=== PATIENT | male | born 1935 | race Caucasian/White ===

== ENCOUNTER 2024-01-29 10:23 | Emergency (ER) | payer MEDICARE, SELFPAY ==
[2024-01-29 10:33] VITALS: BP 107/57
[2024-01-29] MEDS: NORCO 5/325 1 TABLET PO (12:11)
[2024-01-29 14:27] VITALS: BP 121/78
--- NOTE | 2024-01-29 14:59 | ED.MUSCINJ ---
HPI-Injury
General
Chief Complaint: Fall
Time Seen by Provider: 01/29/24 11:15
History of Present Illness-Injury
Initial Injury comments:
88-year-old male presents from home after fall he sustained last evening. He was in his wheelchair leaning forward and he fell out of his wheelchair onto his left hip. He complains of left lateral hip pain. He did not hit his head. No
anticoagulants. He walks minimally on a normal basis. He typically is wheelchair-bound and stands to transfer. No other complaints at this time
Past History
Past History
ED Past Medical History: COPD, HTN, Hypercholesterolemia, IDDM (type II), Hypothyroidism and Other (anxiety, Sleep apnea uses CPAP, )
ED Past Surgical History: None
Social History
Tobacco: Former smoker
Alcohol: Occasional
Drug: None
Personal:
Living: with family
Phy Exam
Physical Exam
Physical Exam:
General: Well-appearing male no acute respiratory distress
HEENT: Normocephalic atraumatic
Heart: Regular rate rhythm no murmurs
Lungs: Clear no wheeze or rales
Musculoskeletal exam: The spine is nontender. The left lateral hip is tender without deformity to the leg. Increased pain with external rotation of the hip.
Neurologic: Alert just hard of hearing. No facial asymmetry
Injury Course
Orders/Labs/Results
Orders:
Orders
01/29/24 11:38
CR Hip - LT w/wo Pel 2-3 Vw* Urgent
Comment:
Reason For Exam: fall, left hip pain
Include a pelvis x-ray?: Yes
01/29/24 12:01
CT Pelvis W/o Iv Contrast Urgent
Comment:
Reason For Exam: left hip pain
01/29/24 12:07
Hydrocodone 5/APAP 325 [[place] 5/325] 1 tablet PO NOW STA
01/29/24 13:44
Case Management Consult ONCE
Case Management Consult: VN/Home Care
MDM/Problems Addressed
Differential Diagnosis Includes:
Fall with left hip pain. Consider contusion versus fracture versus dislocation
X-rays initially reviewed by this provider and radiology no acute finding noted but given the patient's discomfort I was concerned for possible occult injury. CT of the pelvis was then ordered. This does confirm a nondisplaced fracture of the
greater trochanter of the left femur. Discussed findings with orthopedics. This is a nonoperative injury. Patient's daughter does prefer him to be treated at home but did request help from case management to potentially set up home health for
visiting nurses. Case management in the room currently but patient will be discharged home. A dose of [place] here did help relieve the patient's discomfort.
*Critical Care Note
Total Time (30-74mins, 75-104mins- exclusive of procedures): Not Applicable
ED Attending Note
-
Portions of this chart may have been created with voice recognition software.� Occasional wrong word or��sound alike� substitutions may have occurred due to the inherent limitations of voice recognition software.
Discharge Plan
Departure
Patient Disposition: Home (Routine Discharge)
Date of Disposition: 01/29/24
Time of Disposition: 15:08
Patient with high blood pressure during this ER visit?: No
Discharge Problem:
Closed fracture of greater trochanter of left femur
Instructions: Preventing falls in adults
Prescriptions:
New
hydrocodone-acetaminophen 5-325 mg tablet
1 tab PO TID PRN (Reason: Pain) Qty: 10 0RF
No Action
atorvastatin 20 MG tablet
20 mg PO DAILY
sertraline 100 MG tablet
100 mg PO BID
omeprazole magnesium [Prilosec OTC] 20 MG tablet,delayed release (DR/EC)
20 mg PO DAILY
cholecalciferol (vitamin D3) 1,000 UNITS tablet
1,000 units PO DAILY
levothyroxine 137 MCG capsule
137 mcg PO DAILY
trazodone 100 MG tablet
100 mg PO HS
miconazole nitrate 2 % Cream
1 applic TOPICAL BID
miconazole nitrate [Miconazorb AF] 2 % Powder
1 applic TOPICAL BID
acetaminophen [Tylenol Extra Strength] 500 mg Tablet
1,000 mg PO Q6H PRN (Reason: mild pain)
insulin glargine [Lantus Solostar U-100 Insulin] 100 unit/mL (3 mL) insulin pen
20 unit SC DAILY
cefdinir 300 mg capsule
300 mg PO Q12H 5 Days Qty: 10 0RF
Referrals:
Bolivar Frank MD [Family Provider] -
Alex Reynolds MD [Active] -
Activity Restrictions/Additional Instructions:
Continue with pain medicine if needed for severe pain. Alex may stand up to transfer and have partial weightbearing to left leg. Please follow-up with orthopedics for further evaluation
Interventions
Interventions:
*General Assessment Last Done: 01/29/24 16:25
*Nursing Disposition Last Done: 01/29/24 16:25
ED-Musculoskeletal Assessment Last Done: 01/29/24 11:10
ED- Neurological Assessment Last Done: 01/29/24 11:10
ED-Skin Assessment Last Done: 01/29/24 11:10
Discharge Date and Time
Discharge Date/Time: 01/29/24 16:30
Print Language: POLISH
--- NOTE | 2024-01-29 16:00 | CM ---
CM following re: d/c planning.
CM met with pt at bedside.
Pt is GAMBELL. He agreed to have CM speak with his daughter.
Call placed to daughter Xiao.
She reports in the home reside pt, his , herself, and her sister who is disabled.
Xiao states she is trying to care for everyone.
She is working with [facility] to get waiver services in place.
She states pt has a walker and WC, mostly using WC. She states he can navigate the WC independently, but she assists him with transfers.
She states he should use the walker more.
She states he is current with Palliative care.
We discussed VN, she is agreeable to ref to [facility].
CM confirmed pt is agreeable also.
Goal: return home with [facility].
== END 2024-01-29 16:30 | disposition home or self-care (01) ==
LOC: EMR 10:23
PROVIDERS: EMERGENCY PHYSICIAN Emergency Medicine; FAMILY PHYSICIAN Family Medicine
DX: S72.112A Displaced fracture of greater trochanter of left femur, initial encounter for closed fracture (principal); W05.0XXA Fall from non-moving wheelchair, initial encounter; J44.9 Chronic obstructive pulmonary disease, unspecified; I10 Essential (primary) hypertension; E78.00 Pure hypercholesterolemia, unspecified; E11.9 Type 2 diabetes mellitus without complications; E03.9 Hypothyroidism, unspecified; F41.9 Anxiety disorder, unspecified; G47.30 Sleep apnea, unspecified; Z87.891 Personal history of nicotine dependence; Z99.3 Dependence on wheelchair
CPT/HCPCS: 99284; 72192; 73502

== ENCOUNTER 2024-02-01 13:03 | Inpatient (IN) | payer MEDICARE, SELFPAY ==
[2024-01-31] VITALS (9 sets, daily range): BP systolic 94–157; BP diastolic 52–77; O2SAT 95; BMI 23.2
--- NOTE | 2024-01-31 14:05 | ED.GENMED ---
History of Present Illness
General
Chief Complaint: Social Service Referral
Source: patient and family
Time Seen by Provider: 01/31/24 13:54
History of Present Illness
History of Present Illness:
88-year-old male seen by this provider 2 days ago presents with increased difficulty managing and functioning at home. He was here and diagnosed with a greater trochanteric fracture of the left femur. Family wanted to try management at home with
visiting nurses. Visiting nurse did see them today. Family notes hardship in function and pain management at home and present here for possible placement. No new injury. After discussion with orthopedics 2 days ago the injury he has is a
nonoperative type of injury. No chest pain shortness of breath fever abdominal pain nausea or vomiting. He notes pain to the left hip. No other complaints at this time
Past History
Past History
ED Past Medical History: COPD, HTN, Hypercholesterolemia, IDDM (type II), Hypothyroidism and Other (anxiety, Sleep apnea uses CPAP, )
ED Past Surgical History: None
Social History
Tobacco: Former smoker
Alcohol: Occasional
Drug: None
Personal:
Living: with family
Phy Exam
Physical Exam
Physical Exam:
General: Frail-appearing male no acute respiratory distress
HEENT: Normocephalic atraumatic, heart
Heart: RRR no mumurs
Lungs: CTA bilaterally
MSK: Left hip tender laterally, no deformities
neuro: alert, hard of hearing, no facial asymmetry
Course
Orders/Labs/Results
Orders:
Orders
01/31/24 14:04
Case Management Consult ONCE
Case Management Consult: Discharge Planning
PT Consult [Pt Eval And Treat] Urgent
Treatment: PWB LLE, ok to transfer
Activity Level: Ambulate
01/31/24 14:13
Complete Blood Count/With Diff Urgent
Comprehensive Metabolic Panel Urgent
01/31/24 15:20
HYDROmorphone [Dilaudid] 0.5 mg IV NOW STA
Abnormal Lab Results
01/31/24
14:13
RBC 2.83 L 10^6/uL
(4.70-6.10)
Hgb 9.0 L g/dL
(13.0-18.0)
Hct 26.8 L %
(39.0-52.0)
MCV 94.7 H fL
(80.0-94.0)
MCH 31.8 H pg
(27.0-31.0)
Plt Count 86 L 10^3/uL
(130-400)
MPV 11.1 H fL
(7.4-10.4)
Absolute Lymphs (auto) 0.9 L 10^3/uL
(1.2-3.4)
Immature Gran % 0.6 H %
(0-0.5)
Lymphocytes % 16.9 L %
(20.5-51.1)
Monocytes % 10.4 H %
(1.7-9.3)
Sodium 134 L mmol/L
(135-145)
BUN 45 H mg/dl
(9-20)
Creatinine 1.6 H mg/dL
(0.7-1.3)
Glucose 269 H mg/dl
(70-99)
Total Protein 6.1 L g/dl
(6.3-8.2)
01/31/24 14:13
01/31/24 14:13
Vital Signs
Initial and Last Documented VS:
Initial Vital Signs
Temp Pulse Resp BP
98.2 F 88 20 147/70
01/31/24 13:22 01/31/24 13:22 01/31/24 13:22 01/31/24 13:22
Last Documented Vital Signs
Temp Pulse Resp BP
98.2 F 81 16 146/57
01/31/24 13:22 01/31/24 14:00 01/31/24 14:07 01/31/24 14:00
MDM/Problems Addressed
Differential Diagnosis Includes:
Generalized weakness in the setting of known greater trochanteric fracture of the left femur. May be a result of the orthopedic injury. Check basic labs. Family unable to care for patient at home. He had visiting nurses set up already at home.
Consult physical therapy and case movement. Patient may require placement.
*Critical Care Note
Total Time (30-74mins, 75-104mins- exclusive of procedures): Not Applicable
Update Note
Update Note:
Patient evaluated by physical therapy and case management. Physical therapy recommend temporary placement into rehab. Case management unable to place. Family tried to care for him at home but the care is too much to handle. Will admit to
hospital for further evaluation
ED Attending Note
-
Portions of this chart may have been created with voice recognition software.� Occasional wrong word or��sound alike� substitutions may have occurred due to the inherent limitations of voice recognition software.
Discharge Plan
Departure
Patient Disposition: Admit
Date of Disposition: 01/31/24
Time of Disposition: 15:39
Admit to: Telemetry
Presentation/result/management discussed w/ accepting MD/DO: Hospitalist
Discharge Problem:
Closed fracture of greater trochanter of femur
Prescriptions:
No Action
atorvastatin 20 MG tablet
20 mg PO DAILY
sertraline 100 MG tablet
100 mg PO BID
omeprazole magnesium [Prilosec OTC] 20 MG tablet,delayed release (DR/EC)
20 mg PO DAILY
cholecalciferol (vitamin D3) 1,000 UNITS tablet
1,000 units PO DAILY
levothyroxine 137 MCG capsule
137 mcg PO DAILY
trazodone 100 MG tablet
100 mg PO HS
miconazole nitrate 2 % Cream
1 applic TOPICAL BID
miconazole nitrate [Miconazorb AF] 2 % Powder
1 applic TOPICAL BID
acetaminophen [Tylenol Extra Strength] 500 mg Tablet
1,000 mg PO Q6H PRN (Reason: mild pain)
insulin glargine [Lantus Solostar U-100 Insulin] 100 unit/mL (3 mL) insulin pen
20 unit SC DAILY
cefdinir 300 mg capsule
300 mg PO Q12H 5 Days Qty: 10 0RF
hydrocodone-acetaminophen 5-325 mg tablet
1 tab PO TID PRN (Reason: Pain) Qty: 10 0RF
Referrals:
Bolivar Frank MD [Family Provider] -
Interventions
Interventions:
*Risk Screen - Suicide Last Done: 01/31/24 13:38
*General Assessment Last Done: 01/31/24 13:38
*Neglect/Abuse Screening Last Done: 01/31/24 13:38
*ED COVID-19 Vaccine History Last Done: 01/31/24 13:38
ED-Musculoskeletal Assessment Last Done: 01/31/24 13:38
ED-Psychological Assessment Last Done: 01/31/24 13:38
Discharge Date and Time
Print Language: YAKUT
[2024-01-31 14:44] LABS: % Basophils 0.4 % (0-2); % Eosinophils 0.4 % (0-6); % Immature Granulocytes 0.6 % (0-0.5); % Lymphocytes 16.9 % (20.5-51.1); % Monocytes 10.4 % (1.7-9.3); % Neutrophils 71.3 % (42.2-75.2); Absolute Lymphocytes 0.9 10^3/uL (1.2-3.4); Absolute Monocytes 0.6 10^3/uL (0.1-0.6); Absolute Neutrophils 3.8 10^3/uL (1.4-6.5); Hematocrit 26.8 % (39.0-52.0); Mean Corp Hgb Conc. 33.6 g/dL (33.0-37.0); Mean Corpuscular Hgb 31.8 pg (27.0-31.0); Mean Corpuscular Volume 94.7 fL (80.0-94.0); Mean Platelet Volume 11.1 fL (7.4-10.4); Nucleated Red Blood Cells % 0 % (-); Platelet Count 86 10^3/uL (130-400); Red Blood Cell Count 2.83 10^6/uL (4.70-6.10); Red Cell Dist. Width 13.1 % (11.5-14.5); White Blood Cell Count 5.3 10^3/uL (4.8-10.8)
[2024-01-31 14:46] LABS: ALT (SGPT) 27 U/L (0-50); AST (SGOT) 51 U/L (17-59); Albumin 3.5 g/dl (3.5-5.0); Alkaline Phosphatase 82 U/L (38-126); Blood Urea Nitrogen 45 mg/dl (9-20); Calcium 8.8 mg/dl (8.4-10.2); Carbon Dioxide 27 mmol/L (22-30); Chloride 101 mmol/L (98-107); Glucose 269 mg/dl (70-99); Potassium 4.6 mmol/L (3.5-5.1); Sodium 134 mmol/L (135-145); Total Bilirubin 0.6 mg/dl (0.2-1.3); Total Protein 6.1 g/dl (6.3-8.2); eGFR 41.19
--- NOTE | 2024-01-31 14:51 | CM ---
Addendum entered by Lila Quan 01/31/24 17:07:
Referrals sent to closest [facility] approved facilities:
1. [facility]
2. [facility]
Patient was sleeping, daughter made aware. Daughter also given a list of the two facilities and their phone numbers and addresses.
Addendum entered by Lila Quan 01/31/24 15:35:
CM reviewed CM note from 01/28.
Per daughter, patient continues to live his , Xiao (daughter at bedside), and her sister who is disabled.
Xiao continues caring for everyone.
On 01.28, Xiao reported she is working with [facility] to get waiver services in place.
Xiao confirmed patient still has a walker and WC, mostly using WC.
Patient continues to be extremely [place]. Per Xiao, his hearing aids were thrown away in the trash.
On 01.28, Xiao reported that patient is current with Palliative care.
DISCHARGE DISPOSITION: Short term rehab at SNF
Addendum entered by Lila Quan 01/31/24 15:19:
CM called [facility]'s UR department. They would liked to be called once patient's care is under an [facility] provider.
Addendum entered by Lila Quan 01/31/24 15:05:
Referrals sent, awaiting PT notes to send with referral.
Original Note:
CM reviewed chart. CM introduced self and role to patient and daughter who was also at bedside. Daughter is the caregiver for patient, his (her mom) and her sister with special needs.
CM explained that patient has Medicare, so STR would usually be private pay. Patient's daughter stated patient would not be able to afford paying for STR. MARIA TERESA also explained 3-MN stay rule, which daughter is familiar with.
CM spoke with [facility] liaison, Karen Funk, who shared patient is a [facility] patient.
Karen gave CM a list of participating facilites. Karen gave the [facility] UR department's number:
[phone] ext [phone]
and the Fax number:
[phone]
CM explained what the [employer] program is and the list of facilites in the area to patient and daughter. She is agreeable to a bed search, if [employer] will assist with costs.
[2024-01-31] MEDS: DILAUDID 0.5 MG IV (15:24)
--- NOTE | 2024-01-31 16:25 | HPS.HSE ---
Family Physician
-
Family Physician: Bolivar Frank
Chief Complaint
-
left hip pain
History of Present Illness
88-year-old male past medical history of type 2 diabetes, hypertension, COPD, obstructive sleep apnea, GERD, chronic thrombocytopenia, chronic anemia, hypothyroidism, anxiety/depression, sacral/buttock ulcer, who originally came to the emergency
room 2 days ago after a fall onto his left hip. He was diagnosed with left femur greater trochanteric fracture. He went home with visiting nurse family notes difficulty with functioning and pain control and he comes for possible placement. He
denies any new injury.
He has been taking Vicodin every 8 hours for pain which has not been sufficient for pain control since he has been having muscle spasms.
Medical History
Past Medical History
Past Medical History: Reports Other ( type 2 diabetes, hypertension, COPD, obstructive sleep apnea, GERD, chronic thrombocytopenia, chronic anemia, hypothyroidism, anxiety/depression, sacral/buttock ulcer)
Past Surgical History: Reports None
Social History
Tobacco: Non-smoker
Alcohol: None
Drug: None
Family History
Family History: Not pertinent
Allergies / Home Medications
Allergies reflects when Allergies were last updated in [employer].
Home Medications with original date entered in [employer]
Allergy/Medication List:
Allergies
Allergy/AdvReac Type Severity Reaction Status Date / Time
quinine Allergy fever,n/v Verified 01/29/24 10:34
Tetanus Vaccines and Toxoid Allergy fever/chill Verified 01/29/24 10:34
s
Home Medications
atorvastatin 20 mg tablet 20 mg PO DAILY High cholesterol 03/27/14
omeprazole magnesium 20 mg tablet,delayed release (Prilosec OTC) 20 mg PO DAILY Gastrointestinal issue 03/27/14
sertraline 100 mg tablet 100 mg PO BID Depression 03/27/14
cholecalciferol (vitamin D3) 25 mcg (1,000 unit) tablet 1,000 units PO DAILY Supplement 09/24/20
levothyroxine 137 mcg capsule 137 mcg PO DAILY Thyroid 09/24/20
trazodone 100 mg tablet 100 mg PO HS depression 11/30/21
insulin glargine 100 unit/mL (3 mL) subcutaneous pen (Lantus Solostar U-100 Insulin) 10 unit SC DAILY Diabetes 02/18/23
cetirizine 10 mg tablet (Zyrtec) 10 mg PO DAILY Allergies 01/31/24
hydrocodone 5 mg-acetaminophen 325 mg tablet 1 tab PO Q8H Pain 01/31/24
Review of Systems
-
History Source: Patient
A 12 point ROS was completed and negative except as noted: Yes
Constitutional: Reports No Symptoms
EENT: Reports No Symptoms
Respiratory: Reports No Symptoms
Cardiac: Reports No Symptoms
Abdomen/GI: Reports No Symptoms
: Reports No Symptoms
Musculoskeletal: Reports See HPI
Skin: Reports No Symptoms
Neurological: Reports No Symptoms
Endocrine: Reports No Symptoms
Hematologic/Lymphatic: Reports No Symptoms
Psych: Reports No Symptoms
Physical Exam
Vital Signs
Vital Signs
Temp Pulse Resp BP Pulse Ox
98.2 F 79 16 94/56 96
01/31/24 13:22 01/31/24 16:00 01/31/24 16:00 01/31/24 16:00 01/31/24 16:00
Physical Exam
General: Well Developed, Well Nourished and No Apparent Distress
HEENT: NormoCephalic, Moist mucous membranes and Atraumatic
Respiratory: Clear
Cardiac: S1/S2 and Regular Rhythm; No Murmur or Rub
GI: Soft, Non Tender, Non Distended and Normal Bowel Sounds; No Organomegaly
Rectal: Deferred by Provider
Musculoskeletal: No Clubbing, No Cyanosis and No Edema
Skin: No Rash
Neuro: Nonfocal/grossly intact
Laboratory Results
-
01/31/24 14:13
01/31/24 14:13
Laboratory Results
Total Bilirubin 0.6 mg/dl (0.2-1.3) 01/31/24 14:13
AST 51 U/L (17-59) 01/31/24 14:13
ALT 27 U/L (0-50) 01/31/24 14:13
Alkaline Phosphatase 82 U/L (38-126) 01/31/24 14:13
Data Reviewed
-
Lab Data: Labs Reviewed by me
Old Records: Reviewed
Impression/Plan
-
IMPRESSION:
PLAN:
# Left greater trochanteric fracture
-ER discussed with orthopedics and no surgery required
-Seen by PT, case management unable to place today
-Continue Vicodin every 8 hours
-Add as needed tizanidine for muscle spasms
# Acute kidney injury
-IV fluids
Type 2 diabetes
-Continue Lantus
Essential hypertension
COPD
Obstructive sleep apnea
-Patient uses CPAP
GERD
-Continue omeprazole
Chronic thrombocytopenia
-Stable
Chronic anemia
-Stable
Hypothyroidism
-Continue levothyroxine
Anxiety/depression
-Continue sertraline
-Continue trazodone
History of sacral/buttock ulcer
Full code
DVT prophylaxis�heparin
Diabetic diet
[2024-01-31 17:34] LABS: Glucose - Point of Care 241 mg/dl (70-99)
[2024-01-31] MEDS: NSS 1000 IV (18:22)
[2024-01-31] MEDS: NORCO 5/325 1 TABLET PO ×2 (18:22→23:44)
[2024-01-31] MEDS: ZOLOFT 100 MG PO (19:59)
[2024-01-31] MEDS: HEPARIN 5000 UNITS SC (19:59)
[2024-01-31 21:26] LABS: Glucose - Point of Care 264 mg/dl (70-99)
[2024-01-31] MEDS: DESYREL 100 MG PO (22:21)
[2024-02-01] MEDS: NSS 1000 IV (05:15)
[2024-02-01] MEDS: SYNTHROID 137 MCG PO (05:21)
[2024-02-01 06:00] VITALS: BMI 23.0
[2024-02-01 07:00] VITALS: BP 133/53
[2024-02-01 07:13] LABS: Glucose - Point of Care 140 mg/dl (70-99)
--- NOTE | 2024-02-01 08:21 | CON.ORTHO ---
Consultation
-
Date/Time Consultation Requested: 02/01/2024; time unknown
Date/Time Consultation Performed: 02/01/2024; 0800
Requesting Provider: Dr. Mendoza
Performing Provider: Reema Phillips PA-C for Dr. Tien Penn
Reason for Consultation: Left greater trochanter fracture
Consultation - Orthopedics
History
Mr. Hernandez is an 88-year-old male past medical history of type 2 diabetes, hypertension, COPD, obstructive sleep apnea, GERD, chronic thrombocytopenia, chronic anemia, hypothyroidism, anxiety/depression, sacral/buttock ulcer. He initially presented
to 2 days ago after a fall onto his left hip. He reports tipping in his wheelchair and landing on his left side. He was diagnosed with a nondisplaced greater trochanter fracture at that visit. He was initially discharged home with VN, but has had
difficulty with ADLs and pain control. He returned to ED for possible placement. He endorses quite a bit of pain about the hip. He denies pain elsewhere.
Allergies / Home Medications
Allergy/AdvReac Type Severity Reaction Status Date / Time
quinine Allergy fever,n/v Verified 01/29/24 10:34
Tetanus Vaccines and Toxoid Allergy fever/chill Verified 01/29/24 10:34
s
�Medication �Instructions �Recorded
atorvastatin 20 mg tablet 20 mg PO DAILY High cholesterol 03/27/14
omeprazole magnesium 20 mg 20 mg PO DAILY Gastrointestinal 03/27/14
tablet,delayed release (Prilosec issue
OTC)
sertraline 100 mg tablet 100 mg PO BID Depression 03/27/14
cholecalciferol (vitamin D3) 25 1,000 units PO DAILY Supplement 09/24/20
mcg (1,000 unit) tablet
levothyroxine 137 mcg capsule 137 mcg PO DAILY Thyroid 09/24/20
trazodone 100 mg tablet 100 mg PO HS depression 11/30/21
insulin glargine 100 unit/mL (3 10 unit SC DAILY Diabetes 02/18/23
mL) subcutaneous pen (Lantus
Solostar U-100 Insulin)
cetirizine 10 mg tablet (Zyrtec) 10 mg PO DAILY Allergies 01/31/24
hydrocodone 5 mg-acetaminophen 325 1 tab PO Q8H Pain 01/31/24
mg tablet
Vital Signs / Lab Results
Temp Pulse Resp BP Pulse Ox
99.1 F 79 17 122/52 94
01/31/24 23:11 01/31/24 23:11 01/31/24 23:11 01/31/24 23:11 01/31/24 23:48
CT Pelvis 01/29/2024IMPRESSION:
Acute nondisplaced transverse oblique fracture through the greater trochanter of the left femur
Mild degenerative osteoarthritis of both hips
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
Directed exam of the left hip reveals ecchymosis about the lateral hip and thigh. Tenderness to palpation over the greater trochanter and mildly along the anterolateral thigh. Pain elicited with log roll. Calf soft and nontender. Patient able to
wiggle toes, plantar and dorsiflex ankle. Neurovascularly intact distally.
Assessment / Plan
Nondisplaced left greater trochanter fracture
--Alex' CT scan reveals a nondisplaced greater trochanter fracture. This can be managed non-operatively. He may be weight bearing as tolerated to his left lower extremity with a walker. I would recommend avoiding active abduction. Patient would
benefit from PT/OT while patient admitted. Pain control per primary. Recommend outpatient follow up for repeat x-rays. Orthopedics will sign off for now. Please reach out with any additional orthopedic questions o concerns.
[2024-02-01 09:02] LABS: ALT (SGPT) 22 U/L (0-50); AST (SGOT) 37 U/L (17-59); Albumin 2.9 g/dl (3.5-5.0); Alkaline Phosphatase 69 U/L (38-126); Blood Urea Nitrogen 40 mg/dl (9-20); Calcium 8.4 mg/dl (8.4-10.2); Carbon Dioxide 25 mmol/L (22-30); Chloride 105 mmol/L (98-107); Estimated Creatinine Clearance 43 ml/min; Glucose 156 mg/dl (70-99); Potassium 4.6 mmol/L (3.5-5.1); Sodium 136 mmol/L (135-145); Total Bilirubin 0.6 mg/dl (0.2-1.3); Total Protein 5.3 g/dl (6.3-8.2); eGFR 52.84
[2024-02-01] MEDS: LANTUS 0.1 UNITS SC (09:11)
[2024-02-01] MEDS: NORCO 5/325 1 TABLET PO (09:12)
[2024-02-01] MEDS: VITAMIN D3 (cholecalciferol) 25 MCG PO (09:13)
[2024-02-01] MEDS: ZYRTEC 10 MG PO (09:13)
[2024-02-01] MEDS: HEPARIN 5000 UNITS SC ×2 (09:13→20:38)
[2024-02-01] MEDS: LIPITOR 20 MG PO (09:13)
[2024-02-01] MEDS: ZOLOFT 100 MG PO ×2 (09:13→20:38)
[2024-02-01] MEDS: PROTONIX 40 MG PO (09:13)
[2024-02-01] MEDS: DESENEX/MITRAZOL/ZEASORB 1 APPLIC TOPICAL ×2 (09:14→20:38)
[2024-02-01 09:21] LABS: % Basophils 0.3 % (0-2); % Eosinophils 2.5 % (0-6); % Immature Granulocytes 0.5 % (0-0.5); % Lymphocytes 29.4 % (20.5-51.1); % Monocytes 8.3 % (1.7-9.3); Absolute Eosinophils 0.1 10^3/uL (0-0.7); Absolute Lymphocytes 1.2 10^3/uL (1.2-3.4); Absolute Monocytes 0.3 10^3/uL (0.1-0.6); Absolute Neutrophils 2.4 10^3/uL (1.4-6.5); Hematocrit 24.8 % (39.0-52.0); Hemoglobin 8.3 g/dL (13.0-18.0); Mean Corp Hgb Conc. 33.5 g/dL (33.0-37.0); Mean Corpuscular Hgb 32.3 pg (27.0-31.0); Mean Corpuscular Volume 96.5 fL (80.0-94.0); Mean Platelet Volume 11.6 fL (7.4-10.4); Nucleated Red Blood Cells % 0 % (-); Platelet Count 85 10^3/uL (130-400); Red Blood Cell Count 2.57 10^6/uL (4.70-6.10); Red Cell Dist. Width 13.1 % (11.5-14.5)
--- NOTE | 2024-02-01 09:59 | W.PN.HOSP.TC ---
Addendum entered and electronically signed by Bindu Mendoza MD 02/01/24 13:15:
Addendum
Fracture of femur due to fall with underlying diffuse osteopenia
End
Original Note:
Today's Communication/Plan
-
Adjust pain control regimen
Change to regular diet
d/w daughter code status
Monitor CBC
No need for more IVF if oral intake is good.
Assessment / Plan
Assessment / Plan
Physical Exam
General: No Apparent Distress
HEENT: NormoCephalic, Moist mucous membranes and Atraumatic. Hard hearing.
Respiratory: Clear
Cardiac: S1/S2 and Regular Rhythm; No Murmur or Rub
GI: Soft, Non Tender, Non Distended and Normal Bowel Sounds; No Organomegaly
Musculoskeletal: No Clubbing, No Cyanosis and No Edema
Skin: No Rash
Neuro: Awake, followed commands.
Psych: Calm and Confused
# Left greater trochanteric fracture
Pain is not controlled despite [place] 1 tab Q8, will change to 2 tabs with PRN Oxycodone and Dilaudid ( d/w daughter )
d/w ortho, non operative
-Add as needed tizanidine for muscle spasms
#History of type 2 diabetes
-Continue Lantus 20 units
-ISS
- daughter wanted regular diet
# Hyponatremia, mild
# Acute blood loss anemia due to fracture
monitor closely, might need RBCs transfusion, recheck CBC in am
# AUDI, resolving with IVF
#Essential hypertension
#GERD
-Continue omeprazole
#COPD
#Obstructive sleep apnea
-Patient uses CPAP
#Chronic thrombocytopenia
-Stable
#Hypothyroidism
-Continue levothyroxine
#Anxiety/depression
-Continue trazodone, sertraline
#Chronic anemia
-Hemoglobin stable
#Sacral/buttock ulcer stage 1 pressure injury
� Wound care
� No evidence of infection
# Code status, d/w daughter , pt is DNR
Total time spent to see the patient, examine the patient on the floor, review data and lab results, discuss treatment plan with patient, nursing staff around 59 minutes
Anticipated Discharge: 24 - 48 hours
Subjective/Interval History
-
Date of Service: February 01, 2024
Still in pain in leg, [place] is not helping much
Objective Data
-
Labs:
Laboratory Results
02/01/24
08:16
WBC 4.0 L
Hgb 8.3 L
Hct 24.8 L
Plt Count 85 L
Sodium 136
Potassium 4.6
Chloride 105
Carbon Dioxide 25
BUN 40 H
Creatinine 1.3
Glucose 156 H
Calcium 8.4
Total Bilirubin 0.6
AST 37
ALT 22
Alkaline Phosphatase 69
Vital Signs:
Vital Signs
Temp Pulse Resp BP Pulse Ox
97.7 F 75 16 133/53 94
02/01/24 07:00 02/01/24 07:00 02/01/24 07:00 02/01/24 07:00 02/01/24 07:00
I&O
01/31/24 02/01/24 02/02/24
06:59 06:59 06:59
Intake Total 480 / 480 960 / 960
Output Total 75 / 75
Balance 405 / 405 960 / 960
--- NOTE | 2024-02-01 10:49 | WOUNDNOTE ---
BUTTOCKS AND R POSTERIOR THIGH
--- NOTE | 2024-02-01 10:51 | WOUNDNOTE ---
R POSTERIOR THIGH WITH PHOTO FLASH
--- NOTE | 2024-02-01 10:51 | WOUNDNOTE ---
Julio Cesar GORMAN
--- NOTE | 2024-02-01 10:55 | WOUNDNOTE ---
[facility] RN note: Patient admitted with closed fracture of L femur, nonoperative.
See H&P for complete history.Lives with daughter Xiao.
PMH: IDDM, COPD, HTN, RF, chronic thrombocytopenia, AUDI
Wound Location and type/assessment: Patient known to service, last seen 02/21/23 for a stage 1 buttock PI. Admitted s/p fall to floor, patient states was on floor for several hours. R buttock is blanchable red, nonblanchable darker red in center-?
evolving DTI and tiny open weepy areas medially. Suspect stage 1 vs deeper and MASD. Assessed patient with assist from GN LONI Cole. Sacrum is intact. Heels are blanchable red. L hip with bruise. R posterior thigh with bruise vs evolving DTI. Legs
and feet with dry skin, few tiny scattered scabs. Patient states he sits in recliner allot and has a sacral foam cushion for offloading.
Appetite: Fair
Pressure redistribution devices in place: Centrella Air, pillow under calves. Air cushion when sitting.
Plan: Silicone foam applied to sacrum and R posterior thigh. Calazime applied to buttocks. Skin prep and foam adhesives applied to heels, pillow under calves to offload. Will order mineral oil for dry skin on legs daily. Repositioned patient onto L
semi side lying, patient states more comfortable this side. LONI Harris updated of plan, will confirm orders with hospitalist. Recommend VN follow patient's wounds if discharged back to home.
--- NOTE | 2024-02-01 12:38 | CM ---
CM spoke with patient daughter at bedside. Patient daughter states that she is unable to take patient home due to level of care. CM reviewed options for SNF and she is requesting referral to [facility] also. CM sent tt to physician requesting conversation
with daughter. CM also spoke with NH admissions patient would be MA pending as he does not currently have INP status. CM reviewed OBS/MCFADDEN status with daughter and she will be here shortly to review options with CM. CM will continue to follow for
discharge planning needs.
Plan; SNF
[2024-02-01] MEDS: TYLENOL 1000 MG PO (12:41)
--- NOTE | 2024-02-01 14:09 | PTCARENOTE ---
DNR bracelet applied to pts left wrist. Fluids D/C.
[2024-02-01] MEDS: NORCO 5/325 2 TABLET PO ×2 (14:35→21:21)
--- NOTE | 2024-02-01 14:39 | PTCARENOTE ---
Daughter requesting stool softner for pt. Dr. Mendoza notified
[2024-02-01 15:00] VITALS: BP 103/45
[2024-02-01 15:27] VITALS: PULSE 76; O2SAT 94
[2024-02-01 16:52] LABS: Glucose - Point of Care 211 mg/dl (70-99)
[2024-02-01] MEDS: NOVOLOG FLEXPEN-MODERATE RESISTANCE 3 UNITS SC (17:00)
[2024-02-01 21:08] LABS: Glucose - Point of Care 267 mg/dl (70-99)
[2024-02-01] MEDS: DESYREL 100 MG PO (21:21)
[2024-02-01] MEDS: ROXICODONE 5 MG PO (23:01)
[2024-02-01 23:17] VITALS: BP 144/65
[2024-02-02] VITALS (9 sets, daily range): BP systolic 102–125; BP diastolic 47–77
[2024-02-02] MEDS: SYNTHROID 137 MCG PO (05:31)
[2024-02-02] MEDS: NORCO 5/325 2 TABLET PO ×3 (05:31→21:10)
[2024-02-02 08:13] LABS: Hematocrit 21.5 % (39.0-52.0); Hemoglobin 7.1 g/dL (13.0-18.0); Mean Corpuscular Hgb 31.3 pg (27.0-31.0); Mean Corpuscular Volume 94.7 fL (80.0-94.0); Mean Platelet Volume 11.5 fL (7.4-10.4); Platelet Count 87 10^3/uL (130-400); Red Blood Cell Count 2.27 10^6/uL (4.70-6.10); White Blood Cell Count 3.7 10^3/uL (4.8-10.8)
--- NOTE | 2024-02-02 08:29 | PTCARENOTE ---
Pt Hgb 7.1 this am down from 8.3 yesterday 02/01/24. Dr. Mendoza notified
[2024-02-02] MEDS: HEPARIN 5000 UNITS SC ×2 (08:33→19:31)
[2024-02-02] MEDS: VITAMIN D3 (cholecalciferol) 25 MCG PO (08:33)
[2024-02-02] MEDS: DULCOLAX 10 MG PO (08:33)
[2024-02-02] MEDS: MIRALAX 17 GRAMS PO (08:33)
[2024-02-02] MEDS: LIPITOR 20 MG PO (08:33)
[2024-02-02] MEDS: PROTONIX 40 MG PO (08:33)
[2024-02-02] MEDS: ZOLOFT 100 MG PO ×2 (08:33→19:31)
[2024-02-02] MEDS: HYDROPHOR 1 APPLIC TOPICAL (08:34)
[2024-02-02] MEDS: DESENEX/MITRAZOL/ZEASORB 1 APPLIC TOPICAL ×2 (08:34→19:36)
[2024-02-02 08:38] LABS: Glucose - Point of Care 195 mg/dl (70-99)
[2024-02-02] MEDS: LANTUS 0.1 UNITS SC (08:40)
[2024-02-02] MEDS: NOVOLOG FLEXPEN-MODERATE RESISTANCE 1 UNITS SC ×2 (08:41→11:53)
[2024-02-02] MEDS: DILAUDID 0.5 MG IV (08:42)
[2024-02-02 09:25] LABS: Blood Urea Nitrogen 41 mg/dl (9-20); Carbon Dioxide 24 mmol/L (22-30); Estimated Creatinine Clearance 40 ml/min; eGFR 48.34
[2024-02-02] MEDS: LIDOCAINE 4% PATCH 1 PATCH TOPICAL (09:56)
--- NOTE | 2024-02-02 10:21 | VNURNOTE ---
Chart reviewed. Patient is current with [facility]. Per notes, plan is for SNF. Will continue to follow hospital course.
--- NOTE | 2024-02-02 10:24 | CM ---
CM reviewed patient's chart. CM spoke with liaison at [facility] in regards to patient's discharge plan in the hospital. Also shared that updated clinicals will be sent to [facility]. Liaison will be looking into securing a bed for
patient.
[2024-02-02 10:37] LABS: Calcium 8.4 mg/dl (8.4-10.2); Chloride 105 mmol/L (98-107); Glucose 180 mg/dl (70-99); Sodium 135 mmol/L (135-145)
[2024-02-02 11:48] LABS: Glucose - Point of Care 192 mg/dl (70-99)
--- NOTE | 2024-02-02 12:14 | W.PN.HOSP.TC ---
Today's Communication/Plan
-
RBCs infusion
pain control
PT/OT
Encourage oral intake
Laxative to avoid constipation with use of opioid medications.
Assessment / Plan
Assessment / Plan
Physical Exam
General: No Apparent Distress
HEENT: NormoCephalic, Moist mucous membranes and Atraumatic. Hard hearing.
Respiratory: Clear
Cardiac: S1/S2 and Regular Rhythm; No Murmur or Rub
GI: Soft, Non Tender, Non Distended and Normal Bowel Sounds; No Organomegaly
Musculoskeletal: No Clubbing, No Cyanosis and No Edema
Skin: No Rash
Neuro: Awake, followed commands.
Psych: Calm and Confused
# Left greater trochanteric fracture
Pain is not controlled despite [place] 1 tab Q8, will change to 2 tabs with PRN Oxycodone and Dilaudid ( d/w daughter )
d/w ortho, non operative
Pain is uncontrolled and pt seems to need opioids, d/w Ortho doctor, try hip brace
-Add as needed tizanidine for muscle spasms
#History of type 2 diabetes
-Continue Lantus 20 units
-ISS
- daughter wanted regular diet
# Hyponatremia, mild
# Acute blood loss anemia due to fracture
HGB dropped to 7 from 9
Will give one unit of blood
d/w daughter, consent signed.
# AUDI, resolving with IVF
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
#Essential hypertension
#GERD
-Continue omeprazole
#COPD
#Obstructive sleep apnea
-Patient uses CPAP
#Chronic thrombocytopenia
-Stable
#Hypothyroidism
-Continue levothyroxine
#Anxiety/depression
-Continue trazodone, sertraline
#Sacral/buttock ulcer stage 1 pressure injury
� Wound care
� No evidence of infection
# Code status, d/w daughter , pt is DNR
Total time spent to see the patient, examine the patient on the floor, review data and lab results, discuss treatment plan with patient, daughter, ortho doctor, nursing staff around 59 minutes
Anticipated Discharge: 24 - 48 hours
Subjective/Interval History
-
Date of Service: February 02, 2024
He received IV Dilaudid earlier for pain in left hip
Objective Data
-
Labs:
Laboratory Results
02/02/24
07:05
WBC 3.7 L
Hgb 7.1 L
Hct 21.5 L
Plt Count 87 L
Sodium 135
Potassium 4.0
Chloride 105
Carbon Dioxide 24
BUN 41 H
Creatinine 1.4 H
Glucose 180 H
Calcium 8.4
Vital Signs:
Vital Signs
Temp Pulse Resp BP Pulse Ox
97.5 F 69 18 102/47 93
02/02/24 07:55 02/02/24 07:55 02/02/24 07:55 02/02/24 07:55 02/02/24 07:55
I&O
02/01/24 02/02/24 02/03/24
06:59 06:59 06:59
Intake Total 480 / 480 1320 / 1320
Output Total 75 / 75
Balance 405 / 405 1320 / 1320
[2024-02-02 17:47] LABS: Glucose - Point of Care 225 mg/dl (70-99)
[2024-02-02] MEDS: NOVOLOG FLEXPEN-MODERATE RESISTANCE 3 UNITS SC (17:56)
[2024-02-02] MEDS: DESYREL 100 MG PO (21:10)
[2024-02-02 21:11] LABS: Glucose - Point of Care 152 mg/dl (70-99)
[2024-02-03] MEDS: SYNTHROID 137 MCG PO (05:16)
[2024-02-03] MEDS: NORCO 5/325 2 TABLET PO ×3 (05:16→21:10)
[2024-02-03 07:00] VITALS: BP 127/59
[2024-02-03 07:18] LABS: Glucose - Point of Care 138 mg/dl (70-99)
[2024-02-03 07:26] LABS: Hematocrit 27.5 % (39.0-52.0); Hemoglobin 9.4 g/dL (13.0-18.0); Mean Corp Hgb Conc. 34.2 g/dL (33.0-37.0); Mean Corpuscular Hgb 32.3 pg (27.0-31.0); Mean Corpuscular Volume 94.5 fL (80.0-94.0); Mean Platelet Volume 11.3 fL (7.4-10.4); Platelet Count 87 10^3/uL (130-400); Red Blood Cell Count 2.91 10^6/uL (4.70-6.10); Red Cell Dist. Width 13.8 % (11.5-14.5); White Blood Cell Count 4.4 10^3/uL (4.8-10.8)
[2024-02-03 07:53] LABS: Blood Urea Nitrogen 39 mg/dl (9-20); Calcium 8.4 mg/dl (8.4-10.2); Carbon Dioxide 25 mmol/L (22-30); Chloride 105 mmol/L (98-107); Estimated Creatinine Clearance 43 ml/min; Glucose 138 mg/dl (70-99); Potassium 4.3 mmol/L (3.5-5.1); Sodium 135 mmol/L (135-145); eGFR 52.84
[2024-02-03] MEDS: NOVOLOG FLEXPEN-MODERATE RESISTANCE SC (09:20)
[2024-02-03] MEDS: ZOLOFT 100 MG PO ×2 (09:23→19:46)
[2024-02-03] MEDS: DULCOLAX 10 MG PO (09:23)
[2024-02-03] MEDS: PROTONIX 40 MG PO (09:23)
[2024-02-03] MEDS: MIRALAX 17 GRAMS PO (09:23)
[2024-02-03] MEDS: LIPITOR 20 MG PO (09:24)
[2024-02-03] MEDS: LIDOCAINE 4% PATCH 1 PATCH TOPICAL (09:25)
[2024-02-03] MEDS: VITAMIN D3 (cholecalciferol) 25 MCG PO (09:25)
[2024-02-03] MEDS: LANTUS 0.1 UNITS SC (09:27)
[2024-02-03] MEDS: ROXICODONE 5 MG PO ×3 (09:27→23:56)
[2024-02-03] MEDS: HEPARIN 5000 UNITS SC ×2 (09:28→19:45)
[2024-02-03] MEDS: DESENEX/MITRAZOL/ZEASORB 1 APPLIC TOPICAL ×2 (09:32→19:57)
[2024-02-03] MEDS: HYDROPHOR 1 APPLIC TOPICAL (09:32)
--- NOTE | 2024-02-03 11:07 | W.PN.HOSP.TC ---
Today's Communication/Plan
-
dc
Assessment / Plan
Assessment / Plan
Physical Exam
General: No Apparent Distress
HEENT: NormoCephalic, Moist mucous membranes and Atraumatic. Hard hearing.
Respiratory: Clear
Cardiac: S1/S2 and Regular Rhythm; No Murmur or Rub
GI: Soft, Non Tender, Non Distended and Normal Bowel Sounds; No Organomegaly
Musculoskeletal: No Clubbing, No Cyanosis and No Edema
Skin: No Rash
Neuro: Awake, followed commands.
Psych: Calm and Confused
# Left greater trochanteric fracture
Pain is not controlled despite [place] 1 tab Q8, changed to 2 tabs with PRN Oxycodone and Dilaudid ( d/w daughter )
d/w ortho, non operative
Pain is uncontrolled and pt seems to need opioids, d/w Ortho doctor, try hip brace
-Add as needed tizanidine for muscle spasms
#History of type 2 diabetes
-Continue Lantus 20 units
-ISS
- daughter wanted regular diet
# Hyponatremia, mild
# Acute blood loss anemia due to fracture
HGB dropped to 7 from 9
Will give one unit of blood
d/w daughter, consent signed.
# AUDI, resolving with IVF
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
#Essential hypertension
#GERD
-Continue omeprazole
#COPD
#Obstructive sleep apnea
-Patient uses CPAP
#Chronic thrombocytopenia
-Stable
#Hypothyroidism
-Continue levothyroxine
#Anxiety/depression
-Continue trazodone, sertraline
#Sacral/buttock ulcer stage 1 pressure injury
� Wound care
� No evidence of infection
# Code status, d/w daughter , pt is DNR
Total time spent to see the patient, examine the patient on the floor, review data and lab results, discuss treatment plan with patient, daughter, ortho doctor, nursing staff around 55 minutes
Anticipated Discharge: Today
Subjective/Interval History
-
Date of Service: February 03, 2024
No chest pain
No sob
No fevers
Objective Data
-
Labs:
Laboratory Results
02/03/24
06:15
WBC 4.4 L
Hgb 9.4 L D
Hct 27.5 L
Plt Count 87 L
Sodium 135
Potassium 4.3
Chloride 105
Carbon Dioxide 25
BUN 39 H
Creatinine 1.3
Glucose 138 H
Calcium 8.4
Vital Signs:
Vital Signs
Temp Pulse Resp BP Pulse Ox
97.5 F 67 16 127/59 100
02/03/24 07:00 02/03/24 07:00 02/03/24 07:00 02/03/24 07:00 02/03/24 07:00
I&O
02/02/24 02/03/24 02/04/24
06:59 06:59 06:59
Intake Total 1320 / 1320 1140 / 1140
Balance 1320 / 1320 1140 / 1140
[2024-02-03] MEDS: DILAUDID 0.5 MG IV (11:10)
[2024-02-03 11:30] VITALS: BP 137/65; PULSE 71; O2SAT 93
[2024-02-03 12:16] LABS: Glucose - Point of Care 158 mg/dl (70-99)
[2024-02-03] MEDS: NOVOLOG FLEXPEN-MODERATE RESISTANCE 1 UNITS SC ×2 (12:35→17:24)
[2024-02-03 12:38] VITALS: O2SAT 95
[2024-02-03 12:43] VITALS: BP 137/65; PULSE 71; O2SAT 93
[2024-02-03 15:00] VITALS: BP 141/67
--- NOTE | 2024-02-03 16:45 | CM ---
Patient transitioned from OBS to inpatient status. Therapy recommendation for SNF vs home. Daughter previously stated she cannot care for patient. Referrals forwarded. No auth required. Received PRBC'S.
[2024-02-03 17:00] LABS: Glucose - Point of Care 157 mg/dl (70-99)
[2024-02-03] MEDS: DESYREL 100 MG PO (21:10)
[2024-02-03 21:44] LABS: Glucose - Point of Care 233 mg/dl (70-99)
[2024-02-03 23:09] VITALS: BP 110/48
[2024-02-04] MEDS: ZANAFLEX 2 MG PO (05:09)
[2024-02-04] MEDS: SYNTHROID 137 MCG PO (05:09)
[2024-02-04] MEDS: NORCO 5/325 2 TABLET PO ×3 (05:10→22:11)
[2024-02-04 07:00] VITALS: BP 103/46
--- NOTE | 2024-02-04 08:35 | W.PN.HOSP.TC ---
Today's Communication/Plan
-
dc planning
Assessment / Plan
Assessment / Plan
Physical Exam
General: No Apparent Distress
HEENT: NormoCephalic, Moist mucous membranes and Atraumatic. Hard hearing.
Respiratory: Clear
Cardiac: S1/S2 and Regular Rhythm; No Murmur or Rub
GI: Soft, Non Tender, Non Distended and Normal Bowel Sounds; No Organomegaly
Musculoskeletal: No Clubbing, No Cyanosis and No Edema
Skin: No Rash
Neuro: Awake, followed commands.
Psych: Calm and Confused
# Left greater trochanteric fracture
Pain is not controlled despite [place] 1 tab Q8, changed to 2 tabs with PRN Oxycodone and Dilaudid ( d/w daughter )
d/w ortho, non operative
Pain is uncontrolled and pt seems to need opioids, d/w Ortho doctor, try hip brace
-Add as needed tizanidine for muscle spasms
#History of type 2 diabetes
-Continue Lantus 20 units
-ISS
- daughter wanted regular diet
# Hyponatremia, mild
# Acute blood loss anemia due to fracture
HGB dropped to 7 from 9
Will give one unit of blood
d/w daughter, consent signed.
# AUDI, resolving with IVF
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
#Essential hypertension
#GERD
-Continue omeprazole
#COPD
#Obstructive sleep apnea
-Patient uses CPAP
#Chronic thrombocytopenia
-Stable
#Hypothyroidism
-Continue levothyroxine
#Anxiety/depression
-Continue trazodone, sertraline
#Sacral/buttock ulcer stage 1 pressure injury
� Wound care
� No evidence of infection
# Code status, d/w daughter , pt is DNR
Total time spent to see the patient, examine the patient on the floor, review data and lab results, discuss treatment plan with patient, daughter, ortho doctor, nursing staff around 45 minutes
Anticipated Discharge: Within 24 hours
Subjective/Interval History
-
Date of Service: February 04, 2024
He reports that pain is better controlled
Objective Data
-
Vital Signs:
Vital Signs
Temp Pulse Resp BP Pulse Ox
97.4 F 68 10 103/46 92
02/04/24 07:00 02/04/24 07:00 02/04/24 07:00 02/04/24 07:00 02/04/24 07:00
I&O
02/03/24 02/04/24 02/05/24
06:59 06:59 06:59
Intake Total 1140 / 1140 90 / 90
Output Total 100 / 100
Balance 1140 / 1140 90 / 90 -100 / -100
[2024-02-04] MEDS: DESENEX/MITRAZOL/ZEASORB 1 APPLIC TOPICAL ×2 (08:52→19:50)
[2024-02-04] MEDS: HEPARIN 5000 UNITS SC ×2 (08:53→19:43)
[2024-02-04] MEDS: PROTONIX 40 MG PO (08:54)
[2024-02-04] MEDS: ZOLOFT 100 MG PO ×2 (08:54→19:45)
[2024-02-04] MEDS: DULCOLAX 10 MG PO (08:55)
[2024-02-04] MEDS: VITAMIN D3 (cholecalciferol) 25 MCG PO (08:55)
[2024-02-04] MEDS: MIRALAX 17 GRAMS PO (08:55)
[2024-02-04] MEDS: LIPITOR 20 MG PO (08:55)
[2024-02-04] MEDS: LANTUS 0.1 UNITS SC (08:56)
[2024-02-04 08:58] LABS: Glucose - Point of Care 145 mg/dl (70-99)
[2024-02-04] MEDS: LIDOCAINE 4% PATCH 1 PATCH TOPICAL (08:58)
[2024-02-04] MEDS: NOVOLOG FLEXPEN-MODERATE RESISTANCE SC (08:59)
[2024-02-04] MEDS: HYDROPHOR 1 APPLIC TOPICAL (09:00)
[2024-02-04 10:19] VITALS: BP 100/60
[2024-02-04] MEDS: DILAUDID 0.5 MG IV ×3 (10:48→20:37)
--- NOTE | 2024-02-04 10:57 | CM ---
Addendum entered by Aure Hess RN 02/04/24 16:44:
[facility] cannot accept as there are no beds available. CM is pending [facility] Acceptance.
Addendum entered by Aure Hess RN 02/04/24 11:06:
CM spoke with patient's daughter who is requesting a referral to [facility] and [facility]. She would like facilities close to [place] because she is caring for her mother and sister.
CM sent referrals to [facility] and [facility]. Pending acceptance.
Original Note:
CM reviewed medical records. Patient is medically ready for discharge. CM sent PT notes to [facility] and [facility]. Pending acceptance.
[2024-02-04 12:12] LABS: Glucose - Point of Care 177 mg/dl (70-99)
[2024-02-04] MEDS: NOVOLOG FLEXPEN-MODERATE RESISTANCE 1 UNITS SC (13:11)
[2024-02-04 15:00] VITALS: BP 92/57
[2024-02-04 16:43] LABS: Glucose - Point of Care 317 mg/dl (70-99)
[2024-02-04] MEDS: NOVOLOG FLEXPEN-MODERATE RESISTANCE 3 UNITS SC (16:43)
[2024-02-04 16:46] LABS: Glucose - Point of Care 201 mg/dl (70-99)
[2024-02-04] MEDS: FLUSH (NSS) 2 FLUSH IV (20:38)
[2024-02-04 21:17] LABS: Glucose - Point of Care 139 mg/dl (70-99)
[2024-02-04] MEDS: DESYREL 100 MG PO (22:12)
[2024-02-04 23:13] VITALS: BP 120/55
[2024-02-05] MEDS: DILAUDID 0.5 MG IV (02:52)
[2024-02-05] MEDS: FLUSH (NSS) 2 FLUSH IV (02:53)
[2024-02-05] MEDS: NORCO 5/325 2 TABLET PO (05:35)
[2024-02-05] MEDS: SYNTHROID 137 MCG PO (05:35)
[2024-02-05 08:09] VITALS: BP 117/61
[2024-02-05 08:12] LABS: Glucose - Point of Care 124 mg/dl (70-99)
[2024-02-05] MEDS: NOVOLOG FLEXPEN-MODERATE RESISTANCE SC ×2 (08:13→11:32)
[2024-02-05] MEDS: DESENEX/MITRAZOL/ZEASORB 1 APPLIC TOPICAL ×2 (08:14→20:46)
[2024-02-05] MEDS: LANTUS 0.1 UNITS SC (08:14)
[2024-02-05] MEDS: LIDOCAINE 4% PATCH 1 PATCH TOPICAL (08:14)
[2024-02-05] MEDS: VITAMIN D3 (cholecalciferol) 25 MCG PO (08:15)
[2024-02-05] MEDS: HYDROPHOR 1 APPLIC TOPICAL (08:15)
[2024-02-05] MEDS: LIPITOR 20 MG PO (08:15)
[2024-02-05] MEDS: PROTONIX 40 MG PO (08:15)
[2024-02-05] MEDS: MIRALAX 17 GRAMS PO (08:15)
[2024-02-05] MEDS: DULCOLAX 10 MG PO (08:15)
[2024-02-05] MEDS: ZOLOFT 100 MG PO ×2 (08:16→20:48)
[2024-02-05] MEDS: HEPARIN 5000 UNITS SC ×2 (08:16→20:46)
--- NOTE | 2024-02-05 10:38 | W.PN.HOSP.TC ---
Today's Communication/Plan
-
Await dc
Continue with modified diet
Aspiration precautions
Speech evaluation
Cut back on pain medicine.
Assessment / Plan
Assessment / Plan
Physical Exam
General: No Apparent Distress
HEENT: NormoCephalic, Moist mucous membranes and Atraumatic. Hard hearing.
Respiratory: Clear
Cardiac: S1/S2 and Regular Rhythm; No Murmur or Rub
GI: Soft, Non Tender, Non Distended and Normal Bowel Sounds; No Organomegaly
Musculoskeletal: No Clubbing, No Cyanosis and No Edema
Skin: No Rash
Neuro: Awake, followed commands.
Psych: Calm and Confused
# Left greater trochanteric fracture
Pain is not controlled despite [place] 1 tab Q8, was changed to 2 tabs with PRN Oxycodone and Dilaudid ( d/w daughter ). I think we can cut back to one tab.
d/w ortho, non operative
Pain is better controlled but continued to need opioids, d/w Ortho doctor, try hip brace
-Add as needed tizanidine for muscle spasms
#History of type 2 diabetes
-Continue Lantus 20 units
-ISS
- daughter wanted regular diet
# Possible swallowing difficulty
I think opioid induced weakness might be contributing
Will try to cut back on that since he reported his pain was less severe
Changed to modified diet for now
Aspiration precautions.
# Hyponatremia, mild
# Acute blood loss anemia due to fracture
HGB dropped to 7 from 9
s/p unit of blood
d/w daughter, consent signed.
# AUDI, resolving with IVF
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
#Essential hypertension
#GERD
-Continue omeprazole
#COPD
#Obstructive sleep apnea
-Patient uses CPAP
#Chronic thrombocytopenia
-Stable
#Hypothyroidism
-Continue levothyroxine
#Anxiety/depression
-Continue trazodone, sertraline
#Sacral/buttock ulcer stage 1 pressure injury
� Wound care
� No evidence of infection
# Code status, d/w daughter , pt is DNR
Total time spent to see the patient, examine the patient on the floor, review data and lab results, discuss treatment plan with patient, daughter, ortho doctor, nursing staff around 57 minutes
Anticipated Discharge: Today
Subjective/Interval History
-
Date of Service: February 05, 2024
He reports pain is less in his leg
Nurse, cough after eating at times
Objective Data
-
Vital Signs:
Vital Signs
Temp Pulse Resp BP Pulse Ox
97.5 F 68 16 117/61 95
02/05/24 08:09 02/05/24 08:09 02/05/24 08:09 02/05/24 08:09 02/05/24 09:15
I&O
02/04/24 02/05/24 02/06/24
06:59 06:59 06:59
Intake Total 90 / 90 175 / 175
Output Total 300 / 300
Balance 90 / 90 -125 / -125
[2024-02-05] MEDS: ROXICODONE 5 MG PO (11:29)
[2024-02-05 11:33] LABS: Glucose - Point of Care 102 mg/dl (70-99)
[2024-02-05] MEDS: NORCO 5/325 1 TABLET PO ×2 (14:25→21:39)
[2024-02-05 15:16] VITALS: BP 101/58
[2024-02-05 15:40] VITALS: BP 101/58; PULSE 92; O2SAT 93
[2024-02-05 15:44] VITALS: BP 101/58; PULSE 92; O2SAT 93
[2024-02-05 16:46] LABS: Glucose - Point of Care 180 mg/dl (70-99)
[2024-02-05] MEDS: NOVOLOG FLEXPEN-MODERATE RESISTANCE 1 UNITS SC (17:01)
[2024-02-05 21:36] LABS: Glucose - Point of Care 95 mg/dl (70-99)
[2024-02-05] MEDS: DESYREL 100 MG PO (21:40)
[2024-02-05 23:32] VITALS: BP 135/60
[2024-02-06] MEDS: SYNTHROID 137 MCG PO (05:16)
[2024-02-06] MEDS: NORCO 5/325 1 TABLET PO (05:16)
[2024-02-06 07:00] VITALS: BP 144/71
[2024-02-06 08:51] LABS: Glucose - Point of Care 103 mg/dl (70-99)
[2024-02-06 08:58] LABS: Hematocrit 28.6 % (39.0-52.0); Hemoglobin 9.8 g/dL (13.0-18.0); Mean Corp Hgb Conc. 34.3 g/dL (33.0-37.0); Mean Corpuscular Hgb 31.6 pg (27.0-31.0); Mean Corpuscular Volume 92.3 fL (80.0-94.0); Mean Platelet Volume 10.7 fL (7.4-10.4); Platelet Count 136 10^3/uL (130-400); Red Cell Dist. Width 13.3 % (11.5-14.5); White Blood Cell Count 5.4 10^3/uL (4.8-10.8)
[2024-02-06] MEDS: NOVOLOG FLEXPEN-MODERATE RESISTANCE SC (09:10)
[2024-02-06] MEDS: DULCOLAX 10 MG PO (09:15)
[2024-02-06] MEDS: VITAMIN D3 (cholecalciferol) 25 MCG PO (09:15)
[2024-02-06] MEDS: PROTONIX 40 MG PO (09:16)
[2024-02-06] MEDS: LANTUS 0.1 UNITS SC (09:16)
[2024-02-06] MEDS: MIRALAX 17 GRAMS PO (09:16)
[2024-02-06] MEDS: ZOLOFT 100 MG PO (09:16)
[2024-02-06] MEDS: LIPITOR 20 MG PO (09:17)
[2024-02-06] MEDS: LIDOCAINE 4% PATCH 1 PATCH TOPICAL (09:17)
[2024-02-06 09:18] LABS: Blood Urea Nitrogen 37 mg/dl (9-20); Calcium 9.1 mg/dl (8.4-10.2); Carbon Dioxide 28 mmol/L (22-30); Chloride 108 mmol/L (98-107); Estimated Creatinine Clearance 46 ml/min; Glucose 118 mg/dl (70-99); Potassium 5.3 mmol/L (3.5-5.1); Sodium 140 mmol/L (135-145); eGFR 58.17
[2024-02-06] MEDS: DESENEX/MITRAZOL/ZEASORB 1 APPLIC TOPICAL (09:19)
[2024-02-06] MEDS: HEPARIN 5000 UNITS SC (09:19)
[2024-02-06] MEDS: HYDROPHOR 1 APPLIC TOPICAL (09:19)
[2024-02-06 11:00] VITALS: BP 143/74; PULSE 74; O2SAT 99
[2024-02-06 11:46] LABS: Glucose - Point of Care 176 mg/dl (70-99)
[2024-02-06] MEDS: NOVOLOG FLEXPEN-MODERATE RESISTANCE 1 UNITS SC (12:46)
--- NOTE | 2024-02-06 12:58 | W.PN.HOSP.TC ---
Addendum entered and electronically signed by Tien Serra MD 02/07/24 14:19:
Chronic pancytopenia. Patient labs from 02/25/2023 with pancytopenia.
Elevated creatinine with suspected CKD
Addendum entered and electronically signed by Tien Serra MD 02/06/24 14:30:
More than 30 minutes spent in discharge including
Final examination of the patient
Summarizing hospital stay
Instructions for continuing care to all relevant caregivers
Preparation of discharge records, prescriptions, and referral forms
Total time spent (in minutes): 55
Original Note:
Today's Communication/Plan
-
ongoing dispo efforts
medically stable
Assessment / Plan
Assessment / Plan
Physical Exam
General: No Apparent Distress
HEENT: NormoCephalic, Moist mucous membranes and Atraumatic. Hard hearing.
Respiratory: Clear
Cardiac: S1/S2 and Regular Rhythm; No Murmur or Rub
GI: Soft, Non Tender, Non Distended and Normal Bowel Sounds; No Organomegaly
Musculoskeletal: No Clubbing, No Cyanosis and No Edema
Skin: No Rash
Neuro: Awake, followed commands.
Psych: Calm and Confused
# Left greater trochanteric fracture
Pain control.
d/w ortho, non operative
Pain is better controlled but continued to need opioids, d/w Ortho doctor, try hip brace
-Add as needed tizanidine for muscle spasms
#History of type 2 diabetes
-Continue Lantus 20 units
-ISS
-daughter wanted regular diet
# Possible swallowing difficulty
I think opioid induced weakness might be contributing
Will try to cut back on that since he reported his pain was less severe
Changed to modified diet for now
Aspiration precautions.
# Hyponatremia, mild
# Acute blood loss anemia due to fracture
HGB dropped to 7 from 9
s/p unit of blood
d/w daughter, consent signed.
Hgb improved to 0.8
# AUDI, resolving with IVF
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
#Essential hypertension
#GERD
-Continue omeprazole
#COPD
#Obstructive sleep apnea
-Patient uses CPAP
#Chronic thrombocytopenia
-Stable
#Hypothyroidism
-Continue levothyroxine
#Anxiety/depression
-Continue trazodone, sertraline
#Sacral/buttock ulcer stage 1 pressure injury
� Wound care
� No evidence of infection
# Code status, d/w daughter , pt is DNR
Anticipated Discharge: Within 24 hours
Subjective/Interval History
-
Date of Service: February 06, 2024
Watching tv
pain with activity
wearing brace
Objective Data
-
Labs:
Laboratory Results
02/06/24
08:46
WBC 5.4
Hgb 9.8 L
Hct 28.6 L
Plt Count 136 D
Sodium 140
Potassium 5.3 H
Chloride 108 H
Carbon Dioxide 28
BUN 37 H
Creatinine 1.2
Glucose 118 H
Calcium 9.1
Vital Signs:
Vital Signs
Temp Pulse Resp BP Pulse Ox
98.2 F 63 18 107/47 99
02/06/24 11:00 02/06/24 11:00 02/06/24 11:00 02/06/24 11:00 02/06/24 12:01
I&O
02/05/24 02/06/24 02/07/24
06:59 06:59 06:59
Intake Total 175 / 175 1860 / 1860
Output Total 300 / 300 425 / 425
Balance -125 / -125 1435 / 1435
--- NOTE | 2024-02-06 13:22 | CM ---
Patient has been medically cleared for discharge to [facility] long term and rehab services. Transport has been scheduled for 3:45 PM. Patient, daughter, team, admissions notified.
NURSE TO NURSE REPORT # [phone]
FAX # [phone]
--- NOTE | 2024-02-06 13:46 | PTCARENOTE ---
Report called to [facility] at [phone] at [phone].
--- NOTE | 2024-02-06 14:22 | W.DCSUMMARY ---
Discharge Summary
Discharge Data
Date of Admission: 02/01/24
Date of Discharge: 02/06/24
-
Pending Results: No
Hospital Course
88-year-old male past medical history of type 2 diabetes, hypertension, COPD, obstructive sleep apnea, GERD, chronic thrombocytopenia, chronic anemia, hypothyroidism, anxiety/depression, sacral/buttock ulcer, who originally came to the emergency
room 2 days ago after a fall onto his left hip. He was diagnosed with left femur greater trochanteric fracture. He went home with visiting nurse family notes difficulty with functioning and pain control and he comes for possible placement.
Patient required oxycodone and tizanidine for few doses. Otherwise patient pain was well-controlled. Orthopedic evaluated patient and stated send nonoperative management of recommended hip brace. Patient was eval by PT and OT. Patient has some
difficulty with swallowing which was deemed secondary to opioid induced. Recommended soft and bite sized diet and speech evaluation at SNF. Patient will be discharged to [facility] nursing [facility] with recommendation to follow-up with
orthopedic as outpatient.
Discharge Plan
-
Patient Disposition: Jail/SNF
Discharge Diagnosis/Procedures: Left greater trochanteric fracture
Condition: Fair
Diet: Other diet
Additional Diets: Soft and bite sized food
Activity: With assistance and As tolerated
Additional Activity: weight bearing as tolerated to his left lower extremity with a walker. would recommend avoiding active abduction.
Driving Restrictions: Not until seen by your Dr
Other Services: PT, OT and ST
Activity Restrictions/Additional Instructions:
Wound Care Instructions
Sacrum and R posterior thigh: clean with soap and water, Silicone foam change q 3 days and prn soilage.
Calazime to buttocks daily and prn soilage.
mineral oil for dry skin on legs daily.
Offloading cushion when sitting
Follow up at wound care center call for an appointment.
Referrals:
Bolivar Frank MD [Family Provider] -
Alex Reynolds MD [Active] - in three to four weeks
Prescriptions:
Continued
atorvastatin 20 MG tablet
20 mg PO DAILY
sertraline 100 MG tablet
100 mg PO BID
omeprazole magnesium [Prilosec OTC] 20 MG tablet,delayed release (DR/EC)
20 mg PO DAILY
cholecalciferol (vitamin D3) 1,000 UNITS tablet
1,000 units PO DAILY
levothyroxine 137 MCG capsule
137 mcg PO DAILY
trazodone 100 MG tablet
100 mg PO HS
insulin glargine [Lantus Solostar U-100 Insulin] 100 unit/mL (3 mL) insulin pen
10 unit SC DAILY
cetirizine [Zyrtec] 10 mg Tablet
10 mg PO DAILY
Changed
hydrocodone-acetaminophen 5-325 mg tablet
1 tab PO Q8H Qty: 5 0RF
Discharge Orders:
Discharge Patient (As Directed); Ordered 02/06/24
Ordered By: Tien Serra
Discharge Date and Time
Print Language: PERSIAN
[2024-02-06 15:03] VITALS: BP 110/86
--- NOTE | 2024-02-07 09:28 | PN.CDI ---
CDI
- -
CDI:
Physician Documentation Request
Admit Date: 02/01/24 13:03
Dear Doctor Ponce,
Patient admitted with greater trochanteric fracture.
Noted to have chronic thrombocytopenia.
Additional lab values:
Laboratory Tests
02/01/24 02/02/24 02/03/24
08:16 07:05 06:15
WBC 4.0 L 3.7 L 4.4 L
RBC 2.57 L 2.27 L 2.91 L
Plt Count 85 L 87 L 87 L
Could you please provide a diagnosis that supports the above lab abnormalities and additional evaluation monitoring:
Pancytopenia
thrombocytopenia only
Other
Use of terms such as suspected, likely, concern for, or probable (associated with a specific diagnosis that is being evaluated, monitored, or treated as if it exists) are acceptable and can be coded in the inpatient setting, when documented at the
time of discharge.
Thank you,
Tequila Alfonso RN, BSN
CDI Specialist
tiger text
Please use your independent medical judgment in providing your response.
--- NOTE | 2024-02-07 09:29 | PN.CDI ---
CDI
- -
CDI:
Physician Documentation Request
Admit Date: 02/01/24 13:03
Dear Doctor Ponce,
Patient admitted with left greater trochanteric fracture.
Progress notes include a diagnosis of AUDI.
Creatinine resulted as follows:
Laboratory Tests
01/31/24 02/01/24 02/02/24
14:13 08:16 07:05
Creatinine 1.6 H 1.3 1.4 H
02/03/24 02/06/24
06:15 08:46
Creatinine 1.3 1.2
Criteria for AUDI*
1 Increase in serum creatinine by > or = to 0.3 mg/dL (> or = to 26.5 micromol/L) within 48 hours, OR
2 Increase in serum creatinine to > or = to 1.5 times baseline, which is known or presumed to have occurred within 7 days, OR
3 Urine volume < 0.5 nL/kg/hour for six hours
Based on the above information and the recognized standard for AUDI could you please verify this diagnoses is still accurate and reflective of the patient�s condition to ensure quality of the medical record.
Please clarify in the Progress Notes:
�AUDI is/was present and is a clinical diagnosis based on (please include this additional support in the medical
record)
�After study AUDI has been ruled out
�Other
Use of terms such as suspected, likely, concern for, or probable (associated with a specific diagnosis that is being evaluated, monitored, or treated as if it exists) are acceptable and can be coded in the inpatient setting, when documented at the
time of discharge.
Thank you,
Tequila Alfonso RN, BSN
CDI Specialist
tiger text
Please use your independent medical judgment in providing your response.
== END 2024-02-06 15:41 | DRG 811 ==
LOC: 2 NORTH 13:03
PROVIDERS: Internal Medicine; Physician Assistant; ADMITTING PHYSICIAN Hospitalist; ATTENDING PHYSICIAN Hospitalist; EMERGENCY PHYSICIAN Emergency Medicine; FAMILY PHYSICIAN Family Medicine; OTHER PHYSICIAN Orthopaedic Surgery
PROC: 30233N1 Transfusion of Nonautologous Red Blood Cells into Peripheral Vein, Percutaneous Approach (ICD-10-PCS; 2024-02-02)
DX: D62 Acute posthemorrhagic anemia (principal); S72.112A Displaced fracture of greater trochanter of left femur, initial encounter for closed fracture; N17.9 Acute kidney failure, unspecified; E87.1 Hypo-osmolality and hyponatremia; D61.818 Other pancytopenia; R53.1 Weakness; E03.9 Hypothyroidism, unspecified; E11.9 Type 2 diabetes mellitus without complications; E78.00 Pure hypercholesterolemia, unspecified; F41.9 Anxiety disorder, unspecified; G47.33 Obstructive sleep apnea (adult) (pediatric); I10 Essential (primary) hypertension; K21.9 Gastro-esophageal reflux disease without esophagitis; D69.6 Thrombocytopenia, unspecified; F32.A Depression, unspecified; M16.0 Bilateral primary osteoarthritis of hip; M62.838 Other muscle spasm; R13.10 Dysphagia, unspecified; L89.151 Pressure ulcer of sacral region, stage 1; M51.36 Other intervertebral disc degeneration, lumbar region; M85.80 Other specified disorders of bone density and structure, unspecified site; M51.37 Other intervertebral disc degeneration, lumbosacral region; X58.XXXA Exposure to other specified factors, initial encounter; J44.9 Chronic obstructive pulmonary disease, unspecified; Z66 Do not resuscitate; Z75.1 Person awaiting admission to adequate facility elsewhere; Z87.891 Personal history of nicotine dependence; Z79.890 Hormone replacement therapy; Z79.4 Long term (current) use of insulin; Z88.7 Allergy status to serum and vaccine; Z88.8 Allergy status to other drugs, medicaments and biological substances
CPT/HCPCS: 72192; 73502; 80048; 80053; 82962; 85025; 85027; 86850; 86900; 86901; 86920; 87070; 87147; 96374; 97166; 97530; 97535; 99284; 99285; P9016

== ENCOUNTER → 2024-02-13 11:39 | Outpatient (REF) | payer OTHER, MEDICARE, SELFPAY ==
[2024-02-13 14:20] LABS: % Basophils 0.4 % (0-2); % Eosinophils 3.1 % (0-6); % Immature Granulocytes 0.5 % (0-0.5); % Lymphocytes 17.6 % (20.5-51.1); % Monocytes 5.6 % (1.7-9.3); % Neutrophils 72.8 % (42.2-75.2); Absolute Eosinophils 0.2 10^3/uL (0-0.7); Absolute Lymphocytes 1.3 10^3/uL (1.2-3.4); Absolute Monocytes 0.4 10^3/uL (0.1-0.6); Absolute Neutrophils 5.6 10^3/uL (1.4-6.5); Hematocrit 29.1 % (39.0-52.0); Hemoglobin 9.4 g/dL (13.0-18.0); Mean Corp Hgb Conc. 32.3 g/dL (33.0-37.0); Mean Corpuscular Hgb 30.8 pg (27.0-31.0); Mean Corpuscular Volume 95.4 fL (80.0-94.0); Mean Platelet Volume 10.9 fL (7.4-10.4); Nucleated Red Blood Cells % 0 % (-); Platelet Count 176 10^3/uL (130-400); Red Blood Cell Count 3.05 10^6/uL (4.70-6.10); Red Cell Dist. Width 13.4 % (11.5-14.5); White Blood Cell Count 7.6 10^3/uL (4.8-10.8)
[2024-02-13 14:28] LABS: Blood Urea Nitrogen 22 mg/dl (9-20); Calcium 8.5 mg/dl (8.4-10.2); Carbon Dioxide 27 mmol/L (22-30); Chloride 102 mmol/L (98-107); Glucose 156 mg/dl (70-99); Potassium 3.9 mmol/L (3.5-5.1); Sodium 135 mmol/L (135-145); eGFR > 60.00
== END ==
LOC: OLABP 11:39
PROVIDERS: ATTENDING PHYSICIAN Family Medicine
DX: U07.1 COVID-19 (principal); D69.6 Thrombocytopenia, unspecified; J44.9 Chronic obstructive pulmonary disease, unspecified; I10 Essential (primary) hypertension; N17.9 Acute kidney failure, unspecified; E11.9 Type 2 diabetes mellitus without complications; D62 Acute posthemorrhagic anemia
CPT/HCPCS: 80048; 85025

== ENCOUNTER 2024-03-01 06:22 | Emergency (ER) | payer MEDICARE, SELFPAY ==
[2024-03-01] VITALS (8 sets, daily range): BP systolic 130–144; BP diastolic 59–68; PULSE 71; O2SAT 99; BMI 22.0
--- NOTE | 2024-03-01 06:41 | ED.GENMED ---
History of Present Illness
General
Chief Complaint: Fall
Source: patient
Exam Limitations: none
Time Seen by Provider: 03/01/24 06:28
History of Present Illness
History of Present Illness:
See MDM
Past History
Past History
ED Past Medical History: COPD, HTN, Hypercholesterolemia, IDDM (type II), Hypothyroidism and Other (anxiety, Sleep apnea uses CPAP, )
ED Past Surgical History: None
Social History
Tobacco: Former smoker
Alcohol: Occasional
Drug: None
Personal:
Living: with family
Phy Exam
Physical Exam
Physical Exam:
See MDM
Course
Orders/Labs/Results
Orders:
Orders
03/01/24 06:39
CT Head W/o Iv Contrast Urgent
Comment:
Reason For Exam: unwitnessedfall
Elbow, 3 View, Right [CR Elbow - Right Min 3 Views] Urgent
Comment:
Reason For Exam: fal, elbow pain
Elbow, 3 view, Left [CR Elbow - Left Min 3 Views ] Urgent
Comment:
Reason For Exam: fall, elbow pain
Pelvis, 1 or 2 Views CR [CR Pelvis - 1 Or 2 Views ] Urgent
Comment:
Reason For Exam: fall, pelvic pain
03/01/24 06:41
Case Management Consult ONCE
Case Management Consult: VN/Home Care
Pt Eval And Treat Urgent
Activity Level: Ambulate
03/01/24 07:09
Complete Blood Count/With Diff Urgent
Comprehensive Metabolic Panel Urgent
Abnormal Lab Results
03/01/24
07:09
RBC 3.30 L 10^6/uL
(4.70-6.10)
Hgb 10.6 L g/dL
(13.0-18.0)
Hct 30.6 L %
(39.0-52.0)
MCH 32.1 H pg
(27.0-31.0)
Plt Count 123 L 10^3/uL
(130-400)
MPV 11.4 H fL
(7.4-10.4)
Abs Immat Gran (auto) 0.1 H 10^3/uL
(0-0.05)
Absolute Lymphs (auto) 1.1 L 10^3/uL
(1.2-3.4)
Immature Gran % 0.9 H %
(0-0.5)
Neutrophils % 75.3 H %
(42.2-75.2)
Lymphocytes % 15.9 L %
(20.5-51.1)
BUN 26 H mg/dl
(9-20)
Glucose 260 H mg/dl
(70-99)
Alkaline Phosphatase 177 H U/L
(38-126)
Total Protein 6.2 L g/dl
(6.3-8.2)
03/01/24 07:09
03/01/24 07:09
Vital Signs
Initial and Last Documented VS:
Initial Vital Signs
BP
137/67
03/01/24 06:24
Last Documented Vital Signs
Temp Pulse Resp BP Pulse Ox
97.7 F 68 18 134/59 98
03/01/24 06:26 03/01/24 09:00 03/01/24 07:00 03/01/24 09:00 03/01/24 08:00
MDM/Problems Addressed
Differential Diagnosis Includes:
HPI and MDM Narrative:
88-year-old male presenting for evaluation of unwitnessed fall. Family heard him fall out of the recliner. He was just discharged from rehab about 24 hours ago from a hip fracture. He was given prior to arrival. Patient complaining of bilateral
elbow pain.
Daughter at bedside states she went to make sure that there is no fractures. She is interested in talking to case management and physical therapy about home care
On exam, patient is well-appearing and nontoxic
Physical exam
General: Well appearing and non-toxic
HEENT: protecting airway
Neck: supple
CV: No evidence of cyanosis
Resp: No accessory muscle use
Abd: Non-distended. Pelvis stable to compression
Extremities: No deformities
Neuro: alert
Psych: Normal affect
Skin: Minor skin tears to both elbows
Problems Addressed including Acute and Chronic Conditions affecting care:
1. Unwitnessed fall
Acuity: acute
Prognosis: stable
Details: Will obtain CT head, pelvic x-ray and bilateral elbow x-ray
Updates
8:55 AM Case discussed with physical therapy. Patient appears to be max assist with standing and sidestepping. Daughter still wants to take him home. Will have case management involved
9:30 AM patient cleared by case management and daughter feels comfortable taking patient home
Differential Diagnosis (but not limited to): Contusion, intracranial hemorrhage, fracture
Testing considered: Hip x-ray but no significant tenderness palpated
Drug therapy (if applicable): OTC meds, please see d/c instruction regarding Rx drugs
Amount and/or Complexity of Data Reviewed
Clinical info obtained from: Patient. Daughter states he is complaining of bilateral elbow pain
External data reviewed: Recent admission for hip fracture repair and recent rehab placement
Labs I independently reviewed (but not limited to): Elevated blood sugar
Radiology: N/A
Pulse Ox: not hypoxic
EKG independently reviewed: N/A
Research Psychologist: N/A
Critical Care: N/A
Risk of Complication:
Social Determinants of health: Good social support
Discussed with other providers: N/A
Escalation of Care includes Admit/Obs: After being observed in the Emergency Department, pt stable for discharge.
Occasional wrong word or 'sound a like' substitutions may have occurred due to the inherent limitations of voice recognition software. Read the chart carefully and recognize, using context, where substitutions have occurred.
*Critical Care Note
Total Time (30-74mins, 75-104mins- exclusive of procedures): Not Applicable
ED Attending Note
-
Portions of this chart may have been created with voice recognition software.� Occasional wrong word or��sound alike� substitutions may have occurred due to the inherent limitations of voice recognition software.
Discharge Plan
Departure
Patient Disposition: Home (Routine Discharge)
Date of Disposition: 03/01/24
Time of Disposition: 09:57
Patient with high blood pressure during this ER visit?: No
Discharge Problem:
Bilateral elbow joint pain, Acute hyperglycemia
Prescriptions:
No Action
atorvastatin 20 MG tablet
20 mg PO DAILY
sertraline 100 MG tablet
100 mg PO BID
omeprazole magnesium [Prilosec OTC] 20 MG tablet,delayed release (DR/EC)
20 mg PO DAILY
cholecalciferol (vitamin D3) 1,000 UNITS tablet
1,000 units PO DAILY
levothyroxine 137 MCG capsule
137 mcg PO DAILY
trazodone 100 MG tablet
100 mg PO HS
insulin glargine [Lantus Solostar U-100 Insulin] 100 unit/mL (3 mL) insulin pen
10 unit SC DAILY
cetirizine [Zyrtec] 10 mg Tablet
10 mg PO DAILY
hydrocodone-acetaminophen 5-325 mg tablet
1 tab PO Q8H Qty: 5 0RF
Referrals:
Bolivar Frank MD [Family Provider] -
Activity Restrictions/Additional Instructions:
Please return for any worsening symptoms.
You may return at any time if you have further concerns.
Please follow up with your doctor at the first available appointment, preferably this week. Please discuss his elevated blood sugars.
Interventions
Interventions:
*General Assessment Last Done: 03/01/24 06:26
*Neglect/Abuse Screening Last Done: 03/01/24 06:26
ED- Fall Risk Assessment Last Done: 03/01/24 06:26
*ED COVID-19 Vaccine History Last Done: 03/01/24 06:26
ED-Musculoskeletal Assessment Last Done: 03/01/24 06:42
ED- Neurological Assessment Last Done: 03/01/24 06:42
ED-Skin Assessment Last Done: 03/01/24 06:42
Discharge Date and Time
Print Language: POLISH
[2024-03-01 07:28] LABS: % Basophils 0.4 % (0-2); % Eosinophils 1.9 % (0-6); % Immature Granulocytes 0.9 % (0-0.5); % Lymphocytes 15.9 % (20.5-51.1); % Monocytes 5.6 % (1.7-9.3); % Neutrophils 75.3 % (42.2-75.2); Absolute Eosinophils 0.1 10^3/uL (0-0.7); Absolute Immature Granulocytes 0.1 10^3/uL (0-0.05); Absolute Lymphocytes 1.1 10^3/uL (1.2-3.4); Absolute Monocytes 0.4 10^3/uL (0.1-0.6); Absolute Neutrophils 5.2 10^3/uL (1.4-6.5); Hematocrit 30.6 % (39.0-52.0); Hemoglobin 10.6 g/dL (13.0-18.0); Mean Corp Hgb Conc. 34.6 g/dL (33.0-37.0); Mean Corpuscular Hgb 32.1 pg (27.0-31.0); Mean Corpuscular Volume 92.7 fL (80.0-94.0); Mean Platelet Volume 11.4 fL (7.4-10.4); Nucleated Red Blood Cells % 0 % (-); Platelet Count 123 10^3/uL (130-400); Red Cell Dist. Width 13.2 % (11.5-14.5); White Blood Cell Count 6.9 10^3/uL (4.8-10.8)
[2024-03-01 07:53] LABS: ALT (SGPT) 27 U/L (0-50); AST (SGOT) 31 U/L (17-59); Albumin 3.5 g/dl (3.5-5.0); Alkaline Phosphatase 177 U/L (38-126); Blood Urea Nitrogen 26 mg/dl (9-20); Calcium 9.4 mg/dl (8.4-10.2); Carbon Dioxide 26 mmol/L (22-30); Chloride 103 mmol/L (98-107); Estimated Creatinine Clearance 44 ml/min; Glucose 260 mg/dl (70-99); Potassium 4.6 mmol/L (3.5-5.1); Sodium 137 mmol/L (135-145); Total Bilirubin 0.6 mg/dl (0.2-1.3); Total Protein 6.2 g/dl (6.3-8.2); eGFR 58.17
--- NOTE | 2024-03-01 09:34 | CM ---
Patient seen at bedside in ED with daughter. Patient currently staying with his daughter, of patient also there with 4 grown children of patient daughter. Home is a 2 story home with [employer] as DME. Patient was a patient at [facility] and recently
discharged to patient daughter home with BI to start today. CM will update liaison and send updated referral for [facility]. Patient daughter declined SNF placement and CM reviewed options for further supports, reviewed [email or web address] and patient is in the
process with [facility] for start of waiver services. Patient daughter to look into a chair alarm and baby monitor. CM will continue to follow for discharge planning needs.
Plan; home with daughter, [facility].
== END 2024-03-01 10:13 | disposition home or self-care (01) ==
LOC: EMR 06:22
PROVIDERS: EMERGENCY PHYSICIAN Student in an Organized Health Care Education/Training Program; FAMILY PHYSICIAN Family Medicine
DX: M25.522 Pain in left elbow (principal); M25.521 Pain in right elbow; E11.65 Type 2 diabetes mellitus with hyperglycemia; W07.XXXA Fall from chair, initial encounter; Z87.891 Personal history of nicotine dependence
CPT/HCPCS: 99285; 70450; 72170; 73080; 80053; 85025